=== PATIENT | male | born 1950 | race Hispanic/Latino ===

== ENCOUNTER 2018-09-09 09:20 | Inpatient (IN) | payer MEDICARE ==
[~2018-09-09] VITALS: Ht 172.7 cm; Wt 95.3 kg
[~2018-09-09 09:20] MED LIST: CHOLESTERAL MED; FLEXERIL OR; GENTAMICIN15 ML/BTL OP; HYDROCHLOR12.5 MG/CA PO; NAPROXEN375 MG PO; NO HOME MEDS; ZOCOR10 MG PO
[2018-09-09] MEDS ORDERED: SIMVASTATIN40 MG PO (13:36)
[2018-09-09] MEDS ORDERED: LISINOP/HCTZ1 TA2 PO (13:40)
[2018-09-09] MEDS ORDERED: VITAMIN D3400 UNI2 PO (13:41)
[2018-09-09] MEDS ORDERED: MELOXICAM15 MG PO (13:41)
[2018-09-12] VITALS (9 sets, daily range): BP systolic 143–168; BP diastolic 77–120
[2018-09-13 00:11] VITALS: BP 144/74
[2018-09-13 04:15] VITALS: BP 138/70
[2018-09-13 05:26] LABS: HEMATOCRIT 37.5 % (39.0-50.0); HEMOGLOBIN 12.9 g/dl (14.0-18.0)
[2018-09-13 08:10] VITALS: BP 142/52
[2018-09-13 11:36] VITALS: BP 152/74
[2018-09-13 15:15] VITALS: BP 122/63
[2018-09-13 19:00] VITALS: BP 139/73
[2018-09-14] VITALS: BP 115/62
[2018-09-14 04:34] VITALS: BP 118/66
[2018-09-14 05:50] LABS: HEMATOCRIT 32.2 % (39.0-50.0); IMMATURE GRANULOCYTES 0.6 % (0.0-5.0); MEAN CELL VOLUME 94.7 fL CALC (80.0-100.0); MEAN CORPUSCULAR HGB 32.1 pG CALC (26.0-32.0); MEAN CORPUSCULAR HGB CONC 33.9 g/L CALC (32.0-36.0); RED CELL DISTRI WIDTH 12.4 % (11.5-15.5)
[2018-09-14 06:22] LABS: AMYLASE 56 u/l (30-110); ANION GAP 11 (6-22 (CALC)); BUN 18 mg/dL (8-23); BUN/CREATININE RATIO 29 (12-20 (CALC)); CARBON DIOXIDE 27 mmol/l (22-30); CHLORIDE 99 mmol/l (95-108); CREATININE 0.6 mg/dL (0.7-1.3); GFR > 60 ML/MIN (>=60 (CALC)); GFR FOR AFR.AMER. > 60 ML/MIN (>=60 (CALC)); LIPASE 122 u/l (23-300); POTASSIUM 3.7 mmol/l (3.5-5.1); SGOT/AST 22 u/l (19-48); SODIUM 134 mmol/l (137-146); TOTAL PROTEIN 5.4 g/dL (6.3-8.2)
[2018-09-14 06:28] LABS: BAND 1 % (0-8); HEMOGLOBIN 10.9 g/dl (14.0-18.0); MANUAL DIFFERENTIAL YES
[2018-09-14 06:29] LABS: OTHER CELL TYPE 3
[2018-09-14 06:36] LABS: PLATELET COUNT 136 thou/uL (130-400)
[2018-09-14 06:39] LABS: ALBUMIN 3.1 g/dL (3.2-5.0); ALKALINE PHOSPHATASE 57 u/l (38-126); BILIRUBIN, TOTAL 1.5 mg/dL (0.0-1.4)
[2018-09-14 07:30] VITALS: BP 124/64
[2018-09-14 07:39] VITALS: BP 124/64
== END 2018-09-14 15:22 | disposition home or self-care (01) | DRG 470 ==
LOC: EDBD 09-12 08:26 → MS2 09-12 08:26
PROVIDERS: Internal Medicine Nephrology; ADMIT Orthopaedic Surgery; ATTEND Orthopaedic Surgery
PROC: 0SRD0J9 Replacement of Left Knee Joint with Synthetic Substitute, Cemented, Open Approach (ICD-10-PCS; principal; 2018-09-12)
DX: M17.12 Unilateral primary osteoarthritis, left knee (principal); I10 Essential (primary) hypertension; E78.5 Hyperlipidemia, unspecified; F10.10 Alcohol abuse, uncomplicated; E55.9 Vitamin D deficiency, unspecified; L27.1 Localized skin eruption due to drugs and medicaments taken internally; T40.2X5A Adverse effect of other opioids, initial encounter

== ENCOUNTER 2018-09-17 17:52 | Emergency (ER) | payer MEDICARE ==
[~2018-09-17] VITALS: Ht 172.7 cm; Wt 100.0 kg
[~2018-09-17 17:52] MED LIST changes: +LISINOP/HCTZ1 TA2 PO; +MELOXICAM15 MG PO; +SIMVASTATIN40 MG PO; +VITAMIN D3400 UNI2 PO
[2018-09-17] MEDS ORDERED: OXYCODONE HCL5 MG PO (18:03)
[2018-09-17 19:01] LABS: HEMATOCRIT 32.4 % (39.0-50.0); HEMOGLOBIN 11.1 g/dl (14.0-18.0); IMMATURE GRANULOCYTES 1.6 % (0.0-5.0); MEAN CELL VOLUME 95.3 fL CALC (80.0-100.0); MEAN CORPUSCULAR HGB 32.6 pG CALC (26.0-32.0); MEAN CORPUSCULAR HGB CONC 34.3 g/L CALC (32.0-36.0); NEUT# 3.93 thou/uL (1.82-7.42); RED BLOOD COUNT 3.4 mill/uL (4.70-6.10); RED CELL DISTRI WIDTH 12.8 % (11.5-15.5)
[2018-09-17] MEDS ORDERED: OXYCODO-APAP1 TA2 PO (19:16)
[2018-09-17] MEDS ORDERED: TORADOL PO (20:14)
[2018-09-17 20:25] VITALS: BP 139/74
== END 2018-09-17 20:25 | disposition home or self-care (01) ==
LOC: ED 17:52
PROVIDERS: Family Medicine
DX: G89.18 Other acute postprocedural pain (principal); M25.462 Effusion, left knee; I10 Essential (primary) hypertension; Z96.652 Presence of left artificial knee joint

== ENCOUNTER 2020-03-26 06:45 | Day surgery (SDC) | payer MEDICARE ==
[~2020-03-26] VITALS: Ht 172.7 cm; Wt 95.3 kg
[~2020-03-26 06:45] MED LIST changes: +LIPITOR40 M1 PO; +OXYCODO-APAP1 TA2 PO; +OXYCODONE HCL5 MG PO; +TORADOL PO
[2020-03-26 09:00] VITALS: BP 161/77
== END 2020-03-26 09:12 | disposition home or self-care (01) ==
LOC: ENDO 06:45
PROVIDERS: ATTEND Surgery
PROC: 0DBN8ZX Excision of Sigmoid Colon, Via Natural or Artificial Opening Endoscopic, Diagnostic (ICD-10-PCS; principal; 2020-03-26)
DX: Z12.11 Encounter for screening for malignant neoplasm of colon (principal); D12.5 Benign neoplasm of sigmoid colon; K57.30 Diverticulosis of large intestine without perforation or abscess without bleeding; K64.8 Other hemorrhoids; I10 Essential (primary) hypertension; Z20.828 Contact with and (suspected) exposure to other viral communicable diseases

== ENCOUNTER 2020-10-27 07:21 | Emergency (ER) | payer MEDICARE ==
[~2020-10-27] VITALS: Ht 172.7 cm; Wt 98.9 kg
[2020-10-27] MEDS ORDERED: PROVENTIL108 MCG/AC INHW/SPAC (11:23)
[2020-10-27] MEDS ORDERED: PREDNISONE20 MG PO (11:23)
[2020-10-27 11:48] VITALS: BP 113/66
== END 2020-10-27 11:52 | disposition home or self-care (01) ==
LOC: ED 07:21
DX: J98.8 Other specified respiratory disorders (principal); B97.4 Respiratory syncytial virus as the cause of diseases classified elsewhere; I10 Essential (primary) hypertension; E78.00 Pure hypercholesterolemia, unspecified; F17.200 Nicotine dependence, unspecified, uncomplicated; Z20.822 Contact with and (suspected) exposure to COVID-19

== ENCOUNTER 2022-04-24 17:21 | Emergency (ER) | payer MEDICARE ==
[~2022-04-24] VITALS: Ht 172.7 cm; Wt 89.0 kg
[~2022-04-24 17:21] MED LIST changes: +PREDNISONE20 MG PO; +PROVENTIL108 MCG/AC INHW/SPAC
[2022-04-24] MEDS ORDERED: VOLTAREN75 MG PO (20:43)
[2022-04-24 20:49] VITALS: BP 147/74
== END 2022-04-24 20:50 | disposition home or self-care (01) ==
LOC: ED 17:21
DX: S29.012A Strain of muscle and tendon of back wall of thorax, initial encounter (principal); I10 Essential (primary) hypertension; X50.9XXA Other and unspecified overexertion or strenuous movements or postures, initial encounter